=== PATIENT | male | born 1965 | race Caucasian/White ===

== ENCOUNTER 2023-12-23 09:14 | Emergency (ER) | payer OTHER ==
[2023-12-23] MEDS ORDERED: ONDANSETRON 4 MG/2 ML VIAL ONE (09:36)
[2023-12-23] MEDS ORDERED: NA CHLORIDE 0.9% 1,000 ML ONE (09:36)
[2023-12-23 09:50] LABS: Absolute Basophils 0.1 K/uL (0-0.5); Absolute Eosinophils 0.1 K/uL (0-0.5); Absolute Lymphocytes (CBC) 2.4 K/uL (0.7-4.9); Absolute Monocytes 0.5 K/uL (0.1-1.3); Absolute Neutrophil 3.5 K/uL (1.8-8.0); Basophils % 1.5 % (0-1.3); Eosinophils % 1.9 % (0-4.4); Hematocrit 45.3 % (39.6-49.0); Hemoglobin 14.9 g/dL (13.6-17.9); Lymphocytes % 36.3 % (15.3-44.8); MCH 29.8 pg (27.0-35.0); MCHC 32.8 g/dL (32.0-36.0); MCV 90.8 fL (80-100); MPV 7.2 fL (7.6-11.3); Monocytes % 6.9 % (3.3-12.3); Neutrophils % 53.4 % (41.7-73.7); Platelets 375 thou/uL (152-406); RBC Red Blood Cell Count 4.99 M/uL (4.33-5.43); Red Cell Distribution Width 13.6 % (12.1-15.2)
[2023-12-23 10:09] LABS: ALT/SGPT 21 U/L (16-61); AST/SGOT 14 U/L (15-37); Albumin 3.9 g/dL (3.4-5.0); Albumin/Globulin Ratio 1.1 (1.1-1.8); Alkaline Phosphatase 70 U/L (45-117); Anion Gap 4.9 mEq/L (5.0-15.0); BUN Blood Urea Nitrogen 12 mg/dL (7-18); Bicarbonate 29 mEq/L (21-32); Bilirubin Total 0.5 mg/dL (0.2-1.0); Globulin 3.5 g/dL (2.3-3.5); Glomerular Filtration Rate 89 ml/min (=/>90); Glucose Level 100 mg/dL (74-106); Potassium 3.9 mEq/L (3.5-5.1); Protein, Total 7.4 g/dL (6.4-8.2); Sodium Level 139 mEq/L (136-145)
[2023-12-23 10:11] LABS: C-Reactive Protein < 2.90 mg/L (<3.00)
--- NOTE | 2023-12-23 12:14 | RAD REPORT ---
EXAM DESCRIPTION: MRI - [facility] Orbits W/Wo Con - 12/23/2023 12:01 pm CLINICAL HISTORY: r/o edema Headache, visual changes COMPARISON: No comparisons TECHNIQUE: Multi-sequence, multiplanar MR imaging of the brain was performed with contrast. FINDINGS: No intracranial hemorrhage, hydrocephalus, or extra-axial fluid collection.Mild generalize d brain atrophy. No edema or shift of midline structures. No intracranial mass. DWI is negative for a cute CVA. The midline structures are normally formed. Mastoid air cells and paranasal sinuses are clear except for opacification of the left frontal sinus. . Dedicated orbital protocol demonstrates symmetric size of both globes. No vitreous abnormality. The e xtraocular muscles are symmetric bilaterally. No intraconal or extraconal abnormality seen. The retro -bulbar fat is intact bilaterally. Symmetric optic nerves bilaterally without concerning enhancement. IMPRESSION: No acute or concerning intracranial abnormalities. No pathologic post-contrast enhancement suspected.No pathologic orbital finding.
--- NOTE | 2023-12-23 12:18 | EDPHYS ---
Physician Documentation [facility] Name: Yassine Alarcon Age: 58 yrs Sex: Male : 1965 Arrival Date: 12/23/2023 Time: 09:14 Bed 12 Private MD: ED Physician Nino Vega HPI: 12/22 11:19 This 58 yrs old Male presents to ER via Ambulatory with complaints of Eye agusto Problem. 11:19 The patient is experiencing PAPILLARY EDEMA. Onset: The symptoms/episode began/occurred agusto at an unknown time. Duration: the symptoms UNKNOWN, INCIDENTALLY FOUND. Aggravated by nothing. Alleviated by nothing. Associated signs and symptoms: Pertinent positives: None. Pertinent negatives: None. Patient wears glasses. Severity of symptoms: At their worst the symptoms were very mild in the emergency department the symptoms are unchanged. It is unknown whether or not the patient has had similar symptoms in the past. Historical: - Allergies: 09:31 PENICILLINS; ap3 - PMHx: :31 None; ap3 - Immunization history:: Client reports receiving the 2nd dose of the Covid vaccine, Flu vaccine is not up to date. - Infectious Disease History:: Denies. - Social history:: Smoking status: Patient reports use of chewing tobacco. Patient uses alcohol, only on a social basis. - Family history:: not pertinent. ROS: 11:19 Constitutional: Negative for fever, chills, and weight loss, Eyes: Negative for injury, agusto pain, redness, and discharge, ENT: Negative for injury, pain, and discharge, Neck: Negative for injury, pain, and swelling, Cardiovascular: Negative for chest pain, palpitations, and edema, Respiratory: Negative for shortness of breath, cough, wheezing, and pleuritic chest pain, Abdomen/GI: Negative for abdominal pain, nausea, vomiting, diarrhea, and constipation, Back: Negative for injury and pain, : Negative for injury, bleeding, discharge, and swelling, MS/Extremity: Negative for injury and deformity, Skin: Negative for injury, rash, and discoloration, Neuro: Negative for headache, weakness, numbness, tingling, and seizure, Psych: Negative for depression, anxiety, suicide ideation, homicidal ideation, and hallucinations, Allergy/Immunology: Negative for hives, rash, and allergies, Endocrine: Negative for neck swelling, polydipsia, polyuria, polyphagia, and marked weight changes, Hematologic/Lymphatic: Negative for swollen nodes, abnormal bleeding, and unusual bruising, Exam: 11:19 Constitutional: This is a well developed, well nourished patient who is awake, alert, agusto and in no acute distress. Head/Face: Normocephalic, atraumatic. Eyes: Pupils equal round and reactive to light, extra-ocular motions intact. Lids and lashes normal. Conjunctiva and sclera are non-icteric and not injected. Cornea within normal limits. Periorbital areas with no swelling, redness, or edema. ENT: Nares patent. No nasal discharge, no septal abnormalities noted. Tympanic membranes are normal and external auditory canals are clear. Oropharynx with no redness, swelling, or masses, exudates, or evidence of obstruction, uvula midline. Mucous membranes moist. Neck: Trachea midline, no thyromegaly or masses palpated, and no cervical lymphadenopathy. Supple, full range of motion without nuchal rigidity, or vertebral point tenderness. No Meningismus. Chest/axilla: Normal chest wall appearance and motion. Nontender with no deformity. No lesions are appreciated. Cardiovascular: Regular rate and rhythm with a normal S1 and S2. No gallops, murmurs, or rubs. Normal PMI, no JVD. No pulse deficits. Respiratory: Lungs have equal breath sounds bilaterally, clear to auscultation and percussion. No rales, rhonchi or wheezes noted. No increased work of breathing, no retractions or nasal flaring. Abdomen/GI: Soft, non-tender, with normal bowel sounds. No distension or tympany. No guarding or rebound. No evidence of tenderness throughout. Back: No spinal tenderness. No costovertebral tenderness. Full range of motion. Male : Normal genitalia with no discharge or lesions. Skin: Warm, dry with normal turgor. Normal color with no rashes, no lesions, and no evidence of cellulitis. MS/ Extremity: Pulses equal, no cyanosis. Neurovascular intact. Full, normal range of motion. Neuro: Awake and alert, GCS 15, oriented to person, place, time, and situation. Cranial nerves II-XII grossly intact. Motor strength 5/5 in all extremities. Sensory grossly intact. Cerebellar exam normal. Normal gait. Psych: Awake, alert, with orientation to person, place and time. Behavior, mood, and affect are within normal limits. Vital Signs: 09:28 BP 170 / 97; Pulse 84; Resp 17; Temp 98.8; Pulse Ox 98% ; Weight 102.06 kg; Height 5 ap3 ft. 11 in. ; Pain 0/10; 10:20 BP 174 / 91; Pulse 89; Resp 18; Pulse Ox 100% on R/A; mb9 12:00 BP 161 / 98; Pulse 61; Resp 18; Pulse Ox 98% ; ap3 09:28 Body Mass Index 31.38 (102.06 kg, 180.34 cm) ap3 09:28 Pain Scale: Adult ap3 MDM: 09:20 Patient medically screened. agusto 11:23 Differential diagnosis: Acute glaucoma in. Data reviewed: vital signs, nurses notes, agusto lab test result(s), radiologic studies, MRI. Consideration of Admission/Observation Escalation of care including admission/observation considered. I considered the following discharge prescriptions or medication management in the emergency department Medications were administered in the Emergency Department. See MAR. Independent interpretation of the following test(s) in the Emergency Department MRI: My interpretation is MRI BRAIN, ORBITS W AND WITHOUT. Historians other than the Patient: Spouse/Significant Other: WELL INFORMED. Care significantly affected by the following chronic conditions: NONE. 12/22 09:22 Order name: Comprehensive Metabolic Panel; Complete Time: 11:02 [facility] 12/22 09:22 Order name: CBC with Diff; Complete Time: 11:02 agusto 12/22 09:22 Order name: CRP; Complete Time: 11:02 [facility] 12/22 09:26 Order name: [facility] Orbits W/Wo Con; Complete Time: 12:20 EDMS Administered Medications: 09:41 Drug: NS 0.9% IV 1000 ml IV at 1 bolus Per protocol; 1000 mL bolus Route: IV; Rate: 1 ap3 bolus; Site: right antecubital; 12:39 Follow up: IV Status: Completed infusion ap3 12:39 Follow up: IV Intake: 1000ml ap3 10:20 Not Given (Patient Refused): ondansetron 4 mg IVP once; over 2 minutes ap3 Disposition Summary: 12/23/23 12:17 Discharge Ordered Notes: Location: Home agusto Problem: new agusto Symptoms: have improved agusto Condition: Stable agusto Diagnosis - Headache - NORMAL MRI BRAIN/ORBITS agusto Followup: agusto - With: Private Physician - When: 2 - 3 days - Reason: Recheck today's complaints, Continuance of care, Re-evaluation by your physician Forms: - Medication Reconciliation Form agusto - Thank You Letter agusto - Antibiotic Education agusto - Prescription Opioid Use agusto - Patient Portal Instructions agusto - Leadership Thank You Letter agusto Signatures: Dispatcher [employer] Nino Fry MD MD cha Prokisch, Amanda RN RN ap3
--- NOTE | 2023-12-23 12:18 | ER ---
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 Coronavirus screen: At this time, the client does not indicate any symptoms associated with coronavirus-19. Ebola Screen: No symptoms or risks identified at this time. Initial Sepsis Screen: Does the patient meet any 2 criteria? No. Patient's initial sepsis screen is negative. Does the patient have a suspected source of infection? No. Patient's initial sepsis screen is negative. Risk Assessment: Do you want to hurt yourself or someone else? Patient reports no desire to harm self or others. Onset of symptoms is unknown. 09:28 Method Of Arrival: Ambulatory ap3 09:28 Acuity: ARCHANA 3 ap3 Triage Assessment: :32 General: Appears in no apparent distress. Behavior is calm, cooperative, appropriate ap3 for age. Pain: Denies pain. EENT:. Neuro: Level of Consciousness is awake, alert, obeys commands, Oriented to person, place, time, situation. Cardiovascular: Patient's skin is warm and dry. Respiratory: Airway is patent Respiratory effort is even, unlabored, Respiratory pattern is regular, symmetrical. Historical: - Allergies: :31 PENICILLINS; ap3 - PMHx: :31 None; ap3 - Immunization history:: Client reports receiving the 2nd dose of the Covid vaccine, Flu vaccine is not up to date. - Infectious Disease History:: Denies. - Social history:: Smoking status: Patient reports use of chewing tobacco. Patient uses alcohol, only on a social basis. - Family history:: not pertinent. Screenin:32 [facility] ED Fall Risk Assessment (Adult) History of falling in the last 3 months, ap3 including since admission No falls in past 3 months (0 pts) Confusion or Disorientation No (0 pts) Intoxicated or Sedated No (0 pts) Impaired Gait No (0 pts) Mobility Assist Device Used No (0 pt) Altered Elimination No (0 pt) Score/Fall Risk Level 0 - 2 = Low Risk Oriented to surroundings, Maintained a safe environment, Educated pt \T\ family on fall prevention, incl call for assistance when getting out of bed, Assessed \T\ reinforced patient's understanding of fall precautions, Provided non-skid footwear, Hourly rounding (assess needs \T\ fall precautionary measures) done, Used ambulatory aids as needed (educated on \T\ assisted with), Used gait belt as appropriate. Abuse screen: Denies threats or abuse. Nutritional screening: No deficits noted. Tuberculosis screening: No symptoms or risk factors identified. Assessment: 10:21 Reassessment: No changes from previously documented assessment. Patient and/or family mb9 updated on plan of care and expected duration. Pain level reassessed. Patient is alert, oriented x 3, equal unlabored respirations, skin warm/dry/pink. 12:01 Reassessment: Patient and/or family updated on plan of care and expected duration. Pain ap3 level reassessed. Patient is alert, oriented x 3, equal unlabored respirations, skin warm/dry/pink. Vital Signs: 09:28 BP 170 / 97; Pulse 84; Resp 17; Temp 98.8; Pulse Ox 98% ; Weight 102.06 kg; Height 5 ap3 ft. 11 in. ; Pain 0/10; 10:20 BP 174 / 91; Pulse 89; Resp 18; Pulse Ox 100% on R/A; mb9 12:00 BP 161 / 98; Pulse 61; Resp 18; Pulse Ox 98% ; ap3 09:28 Body Mass Index 31.38 (102.06 kg, 180.34 cm) ap3 09:28 Pain Scale: Adult ap3 ED Course: 09:18 Patient arrived in ED. bd 09:19 Nino Vega MD is Attending Physician. agusto 09:20 Nimisha Srivastava RN is Primary Nurse. ap3 09:30 Inserted saline lock: 20 gauge in right antecubital area, using aseptic technique. bc6 Blood collected. 09:31 Triage completed. ap3 09:31 CRP Sent. bc6 09:31 CBC with Diff Sent. bc6 09:31 Comprehensive Metabolic Panel Sent. bc6 09:32 Arm band placed on right wrist. ap3 09:33 Patient has correct armband on for positive identification. Bed in low position. Call ap3 light in reach. Side rails up X 1. Pulse ox on. NIBP on. 10:21 No provider procedures requiring assistance completed. mb9 12:03 [facility] Orbits W/Wo Con In Process Unspecified. EDMS 12:38 IV discontinued, intact, bleeding controlled, No redness/swelling at site. Pressure ap3 dressing applied. 12:38 Provided Education on: discharge instructions. ap3 Administered Medications: 09:41 Drug: NS 0.9% IV 1000 ml IV at 1 bolus Per protocol; 1000 mL bolus Route: IV; Rate: 1 ap3 bolus; Site: right antecubital; 12:39 Follow up: IV Status: Completed infusion ap3 12:39 Follow up: IV Intake: 1000ml ap3 10:20 Not Given (Patient Refused): ondansetron 4 mg IVP once; over 2 minutes ap3 Medication: 09:33 VIS not applicable for this client. ap3 Intake: 12:39 IV: 1000ml; Total: 1000ml. ap3 Outcome: 12:17 Discharge ordered by MD. liz 12:38 Discharged to home ambulatory, ap3 12:38 Condition: good 12:38 Discharge instructions given to patient, Instructed on discharge instructions, follow up and referral plans. Demonstrated understanding of instructions, follow-up care, 12:39 Patient left the ED. ap3 Signatures: Dispatcher [employer] EDMS Becca Alarcon Corey, MD MD cha Prokisch, Amanda RN RN ap3 Jaz Jordan RN RN mb9 Alisha Rosales6
[2023-12-23 13:17] VITALS: BP 161/98; TEMP 98.8; O2SAT 98
== END 2023-12-23 12:39 | disposition home or self-care (01) ==
LOC: ER 09:14
DX: R51.9 Headache, unspecified (principal); F17.220 Nicotine dependence, chewing tobacco, uncomplicated; Z88.0 Allergy status to penicillin
CPT/HCPCS: 85025; 36415; 80053; 86140; 70553; A9577; J2405; J7030